=== PATIENT | female | born 2005 | race Two or more races ===

== ENCOUNTER 2024-01-06 19:59 | Observation (INO) | payer MEDICAID, SELFPAY ==
[2024-01-06 20:07] VITALS: BP 127/85; PULSE 96
[2024-01-06 20:15] VITALS: BMI 22.5
[2024-01-06] MEDS: hydrOXYzine HCL 25 MG TABLET 50 MG PO (23:56)
== END 2024-01-07 02:13 | disposition home or self-care (01) ==
PROVIDERS: Admitting Provider Student in an Organized Health Care Education/Training Program; Visit Provider Advanced Practice Midwife
DX: O47.1 False labor at or after 37 completed weeks of gestation (principal); Z3A.37 37 weeks gestation of pregnancy
CPT/HCPCS: 59025; 59899; 80307; 85025; 86780; 86850; 86900; 86901; G0378; A9270